=== PATIENT | female | born 1945 | race Two or more races ===

== ENCOUNTER 2024-12-29 10:27 | Outpatient (CLI) | payer MEDICARE ==
[2024-12-29 11:56] LABS: PLATELET COUNT (AUTO) 240 K/uL (150-450); RED BLOOD CELL COUNT(AUTO) 4.25 MIL/uL (4.0-5.2); RED CELL DISTRIBUTION WIDTH 15.9 % (11.5-15.0); WHITE BLOOD COUNT (AUTO) 8.6 K/uL (4.3-11.0)
[2024-12-29 12:23] LABS: ASPARTATE AMINOTRANSFERASE 32.0 U/L (15-37); CALCIUM, SERUM 8.4 mg/dL (8.5-10.1); CREATININE 1.0 mg/dL (0.6-1.3); NT-PRO BNP 609.0 pg/mL (0-125); PHOSPHORUS 3.5 mg/dL (2.5-4.9); SODIUM SERUM 143.0 mmol/L (136-145); TOTAL PROTEIN, SERUM 7.0 g/dL (6.4-8.2); UREA NITROGEN, BLOOD 11.0 mg/dL (7-18)
[2024-12-29 14:43] LABS: APPEARANCE,URINE SLIGHTLY CLOUDY (CLEAR); BLOOD, URINE 2+ Ery/uL (NEGATIVE); LEUKOCYTE ESTERASE ,URINE NEGATIVE (NEGATIVE); NITRITE, URINE NEGATIVE (NEGATIVE); UGLUCOSE NEGATIVE (NEGATIVE)
[2024-12-29 14:50] LABS: ADD URINE CULTURE NO
== END 2024-12-29 23:59 | disposition home or self-care (01) ==
LOC: MSC 10:27
PROVIDERS: ATTEND Internal Medicine
DX: N17.9 Acute kidney failure, unspecified (principal); R60.0 Localized edema; I10 Essential (primary) hypertension; I70.90 Unspecified atherosclerosis; E66.9 Obesity, unspecified; Z68.37 Body mass index [BMI] 37.0-37.9, adult; G89.29 Other chronic pain; M54.50 Low back pain, unspecified; I27.20 Pulmonary hypertension, unspecified
CPT/HCPCS: 85025; 83735; 84100; 81001; 36415; 80053; 83880; 84156; G0463